=== PATIENT | female | born 1995 | race Hispanic/Latino ===

== ENCOUNTER 2018-11-28 13:02 | Inpatient (IN) ==
[2018-11-28] MEDS ORDERED: PEPCID PO PRN (13:21)
[2018-11-28] MEDS ORDERED: PEPCID PO ONE (13:21)
[2018-11-28] MEDS ORDERED: PEPCID IV PRN (13:21)
[2018-11-28] MEDS ORDERED: TYLENOL PO PRN (13:21)
[2018-11-28] MEDS ORDERED: STADOL IV PRN (13:21)
[2018-11-28] MEDS ORDERED: REGLAN PO ONE (13:21)
[2018-11-28] MEDS ORDERED: ZOFRAN IV PRN (13:21)
[2018-11-28] MEDS ORDERED: LR 500 ML IV ONE (13:21)
[2018-11-28] MEDS ORDERED: KEFZOL 1 GM/D5W 1 GM/50 ML IVPB IV PRN (13:21)
[2018-11-28] MEDS: PITOCIN ONE (13:22)
[2018-11-28] MEDS ORDERED: XYLOCAINE-MPF 1% INJ ONE (13:26)
[2018-11-28] MEDS ORDERED: LR 1,000 ML IV SCH (13:30)
[2018-11-28] MEDS ORDERED: PITOCIN 30 UNITS/NS 30 UNIT/500 ML IV.SOLN IV SCH ×2 (13:30→15:00)
[2018-11-28] MEDS ORDERED: SODIUM CHLORIDE 0.9% INJ SCH (13:30)
[2018-11-28 14:20] LABS: BASO# 0.04 X1000 (0.0-0.2); BASO% 0.5 % (0.0-0.8); EOS# 0.05 X1000 (0.0-0.7); EOS% 0.6 % (0.0-10.0); HEMATOCRIT 36.8 % (37.0-47.0); HEMOGLOBIN 12.3 g/dL (12.0-16.0); IMM GRAN# 0.02 X1000 (0.0-0.04); IMM GRAN% 0.2 % (0.0-0.5); LYMPH# 0.98 X1000 (1.2-3.4); LYMPH% 11.8 % (20.5-51.1); MCH 27.3 PG (27-31); MCHC 33.4 g/dL (33-37); MCV 81.8 FL (81-99); MONO# 0.56 X1000 (0.11-0.59); MONO% 6.8 % (1.7-9.3); MPV 12.8 FL (7.4-10.4); NEUT# 6.64 X1000 (1.4-6.5); NEUT% 80.1 % (42.2-75.2); PLT 239 X1000 (130-400); RDW 15.4 % (11.5-14.5); WBC 8.29 X1000 (4.8-10.8)
[2018-11-28] MEDS ORDERED: CYTOTEC PO PRN (14:57)
[2018-11-28] MEDS ORDERED: PERI MEDS (DERMOPLAST/NUPERCAINAL/TUCKS) MISC PRN (14:57)
[2018-11-28] MEDS ORDERED: HYDROXYZINE IM PRN (14:57)
[2018-11-28] MEDS ORDERED: BENADRYL IV PRN (14:57)
[2018-11-28] MEDS ORDERED: PITOCIN IM PRN (14:57)
[2018-11-28] MEDS ORDERED: BOOSTRIX VACCINE IM ONE (14:57)
[2018-11-28] MEDS ORDERED: ATARAX PO PRN (14:57)
[2018-11-28] MEDS ORDERED: BENADRYL PO PRN (14:57)
[2018-11-28] MEDS ORDERED: M-M-R II VACCINE SUBQ ONE (14:57)
[2018-11-28] MEDS ORDERED: PITOCIN 20 UNITS/NS 20 UNITS/1,000 ML IV.SOLN IV SCH (15:00)
--- NOTE | 2018-11-28 15:08 | HISTORY AND PHYSICAL ---
CHIEF COMPLAINT: Onset labor, no care. HISTORY OF PRESENT ILLNESS: The patient is a 23-year-old, G3, P2, [facility] female. Language Line used post to obtain patient's medical history due to arriving at advanced dilatation and rapid delivery. She presents at 39 weeks and 1 day gestation based on an EDC of 12/04/2018. The patient states that she got her due date from [facility] and [facility]. She had no ultrasound for this and no care or doctor's visits. The patient arrived to Labor and Delivery , walked up to the desk complaining of cramping. She did not present through the emergency room. She was placed on the monitor at 1:04 p.m., almost immediately post arrival. heart tones in the 150s when it was picking up. She was checked by a nurse at 1:07 p.m. after she had gone to the bathroom. She was found to be at 8, 100, and +2 station. I arrived in the room at 1:09 p.m. and by then patient was complete, +2, with bulging bag present. PAST MEDICAL HISTORY: None. PAST SURGICAL HISTORY: None. ALLERGIES: None. MEDICATIONS: vitamins. FAMILY HISTORY: Unremarkable per patient. SOCIAL HISTORY: Denies alcohol use. Denies illicit drug use. Denies tobacco use. OBSTETRIC HISTORY: In 2013 a spontaneous vaginal delivery, female infant. In 2016 spontaneous vaginal delivery, female infant. No complications or problems with either and both delivered at term. PHYSICAL EXAMINATION: GENERAL: Alert and oriented x3. Patient feeling contractions and vocal during contractions, but able to relax in between contractions. HEENT: Pupils equal, round, reactive to light. No thyromegaly present. CARDIOVASCULAR: Regular rate and rhythm. LUNGS: Clear to auscultation bilaterally. ABDOMEN: Bowel sounds present. Soft, nondistended, nontender. Gravid uterus, nontender. PELVIC EXAM: Complete. Bag of water intact, bulging. Plus 2 station. EXTREMITIES: No calf pain. No edema. LABS: Labs were obtained just post delivery. Hemoglobin of 12.3, hematocrit of 36.8, white count of 8.29, and platelet count of 239,000. Remainder of panel is all still pending. Urine drug screen and UA also pending. ASSESSMENT: This is a 23-year-old, G3, P2, [facility] female with no care presenting at 39 weeks and 1 day gestation in active labor at complete and +2 PLAN: 1. Imminent delivery. cc: Lindsay Mtz MD MTDD
--- NOTE | 2018-11-28 15:23 | OPERATIVE NOTE ---
PROCEDURE DATE: 11/28/2018 DELIVERY SUMMARY: The patient is a 23-year-old, G3, P2, [place] female with no care, who presents at 39 weeks and 1 day gestation dated with EDC of 12/04/2018 by [facility] and [facility]. She has had no ultrasound or care. She presented to the Labor and Delivery area , walked up to the desk complaining of cramping. She states that her contractions started at 11am. She was placed on the monitor at 1:04 p.m., pretty quickly after arrival. heart tones 150s when picking up. She was checked by the nurse at 1:07pm after patient went to restroom. Per nurse , she was found to be 8, 100, and +2 station. I was in the room at 1:09 p.m. She was complete and +2 with bulging bag. She did have a spontaneous rupture of membranes at 1:17 p.m. while waiting for nursery and nurses to set up a room for delivery. It was clear fluid and she underwent a spontaneous vaginal delivery at 1:18 p.m., female infant, [place] presentation. There was a cord around the neck x1 that was not able to be reduced as patient's pushing effort was great and delivery was fast. There was a short cord noted. One minute delay in cord clamping occurred. Her Apgars were 9 and 10 at 1 and 5 minutes respectively. Baby weighed 7 pounds 5 ounces. No IV access was in and the placenta was delivered at 1:22 p.m. spontaneously with gentle downward traction and uterine massage. She did get 20 units of Pitocin IM in the right thigh at the time of delivery of the placenta. IV was subsequently placed post delivery. The uterus was firm. I did an exploration and there were no retained products of conception. The uterus firmed up nicely with massage. EBL is estimated at approximately 150 mL. Survey of her perineum post delivery revealed a minimal laceration of the posterior introitus on the perineum. Pressure was applied; however, still had bleeding present. It was not deep in nature, but was having bleeding. This laceration was very minimal. Language Line was not present at this time as we were in the midst of delivery. did speak some [place] and translated. Discuss that it would take an injection x2 to numb her up or just placement of 1 figure- of-eight suture which would also just be 2 pokes. She would feel each. It was up to her if she wanted any pain medication to help with it. and patient stated to just do it. One [id number] suture of 3-0 chromic suture was placed for excellent approximation and excellent hemostasis. Patient did tolerate actually very well with no complaints of discomfort. Uterus was firm post delivery. Little to no bleeding. Both mother and baby were doing well. cc: Lindsay Mtz MD [facility]
[2018-11-28 15:32] LABS: RAPID HIV PRESUMPTIVE NEGATIVE
[2018-11-28 15:44] LABS: UR AMPHETAMINES QUAL NONE DETECTED (NONE DETECT); UR BARBITUATES QUAL NONE DETECTED (NONE DETECT); UR BENZODIAZEPIN QUAL NONE DETECTED (NONE DETECT); UR CANNABINOIDS QUAL NONE DETECTED (NONE DETECT); UR COCAINE QUAL NONE DETECTED (NONE DETECT); UR METHADONE QUAL NONE DETECTED (NONE DETECT); UR METHAMPHETAMINE QUAL NONE DETECTED (NONE DETECT); UR OPIATES QUAL NONE DETECTED (NONE DETECT); UR OXYCODONE QUAL NONE DETECTED (NONE DETECT); UR PCP QUAL NONE DETECTED (NONE DETECT); UR PROPOXYPHENE QUAL NONE DETECTED (NONE DETECT); UR TCA QUAL NONE DETECTED (NONE DETECT)
[2018-11-28] MEDS: MOTRIN PO PRN (18:13)
[2018-11-28] MEDS: PERICOLACE PO SCH (20:53)
[2018-11-28 22:33] LABS: RUBELLA SCREEN IMMUNE (IMMUNE)
[2018-11-29] MEDS: MOTRIN PO PRN ×2 (04:09→10:31)
[2018-11-29 06:45] LABS: BASO# 0.05 X1000 (0.0-0.2); BASO% 0.5 % (0.0-0.8); EOS# 0.29 X1000 (0.0-0.7); HEMATOCRIT 30.4 % (37.0-47.0); HEMOGLOBIN 9.7 g/dL (12.0-16.0); IMM GRAN# 0.07 X1000 (0.0-0.04); IMM GRAN% 0.7 % (0.0-0.5); LYMPH% 22.1 % (20.5-51.1); MCH 26.4 PG (27-31); MCHC 31.9 g/dL (33-37); MCV 82.6 FL (81-99); MONO# 1.23 X1000 (0.11-0.59); MONO% 12.9 % (1.7-9.3); MPV 12.8 FL (7.4-10.4); NEUT# 5.77 X1000 (1.4-6.5); NEUT% 60.8 % (42.2-75.2); PLT 217 X1000 (130-400); RBC 3.68 XMIL (4.2-5.4); RDW 15.4 % (11.5-14.5); WBC 9.51 X1000 (4.8-10.8)
--- NOTE | 2018-11-29 07:12 | OB/GYN PROGRESS NOTE ---
Progress Note OB - . OB Progress Note: Vital Signs - 24 hr 11/28/18 13:05 11/28/18 18:30 11/28/18 20:19 Temperature 97.5 F L 97.8 F 97.1 F L Pulse Rate 90 91 H 100 H Respiratory Rate 22 16 18 Blood Pressure 116/74 108/59 119/79 O2 Sat by Pulse Oximetry 100 97 99 11/29/18 00:02 11/29/18 04:04 Temperature 97.1 F L 97.0 F L Pulse Rate 75 74 Respiratory Rate 18 18 Blood Pressure 94/51 89/50 O2 Sat by Pulse Oximetry 96 97 Laboratory Results - last 24 hr 11/28/18 11/28/18 11/28/18 13:08 13:45 13:45 WBC 8.29 RBC 4.50 Hgb 12.3 Hct 36.8 L MCV 81.8 MCH 27.3 MCHC 33.4 RDW Std Deviation 15.4 H Plt Count 239 MPV 12.8 H Immature Gran % (Auto) 0.2 Neut % (Auto) 80.1 H Lymph % (Auto) 11.8 L [place] % (Auto) 6.8 Eos % (Auto) 0.6 Baso % (Auto) 0.5 Immature Gran # (Auto) 0.02 Neut # (Auto) 6.64 H Lymph # (Auto) 0.98 L [place] # (Auto) 0.56 Eos # (Auto) 0.05 Baso # (Auto) 0.04 Glucose Urine Opiates Screen NONE DETECTED Ur Oxycodone Screen NONE DETECTED Urine Methadone Screen NONE DETECTED U Propoxyphene Qual NONE DETECTED Ur Barbituates Screen NONE DETECTED Ur Tricyclics Screen NONE DETECTED Ur Phencyclidine Scrn NONE DETECTED Ur Amphetamines Screen NONE DETECTED U Methamphetamines Scrn NONE DETECTED U Benzodiazepines Scrn NONE DETECTED Urine Cocaine Screen NONE DETECTED U Cannabinoids Screen NONE DETECTED RPR NON-REACTIVE HIV 1&2 Antibody Rapid Rubella Immunity Screen Blood Type Antibody Screen 11/28/18 11/28/18 11/28/18 13:45 13:45 13:45 WBC RBC Hgb Hct MCV MCH MCHC RDW Std Deviation Plt Count MPV Immature Gran % (Auto) Neut % (Auto) Lymph % (Auto) [place] % (Auto) Eos % (Auto) Baso % (Auto) Immature Gran # (Auto) Neut # (Auto) Lymph # (Auto) [place] # (Auto) Eos # (Auto) Baso # (Auto) Glucose 84 Urine Opiates Screen Ur Oxycodone Screen Urine Methadone Screen U Propoxyphene Qual Ur Barbituates Screen Ur Tricyclics Screen Ur Phencyclidine Scrn Ur Amphetamines Screen U Methamphetamines Scrn U Benzodiazepines Scrn Urine Cocaine Screen U Cannabinoids Screen RPR HIV 1&2 Antibody Rapid PRESUMPTIVE NEGATIVE Rubella Immunity Screen IMMUNE Blood Type O POSITIVE Antibody Screen NEGATIVE 11/29/18 04:50 WBC 9.51 RBC 3.68 L Hgb 9.7 L D Hct 30.4 L MCV 82.6 MCH 26.4 L MCHC 31.9 L RDW Std Deviation 15.4 H Plt Count 217 MPV 12.8 H Immature Gran % (Auto) 0.7 H Neut % (Auto) 60.8 Lymph % (Auto) 22.1 [place] % (Auto) 12.9 H Eos % (Auto) 3.0 Baso % (Auto) 0.5 Immature Gran # (Auto) 0.07 H Neut # (Auto) 5.77 Lymph # (Auto) 2.10 [place] # (Auto) 1.23 H Eos # (Auto) 0.29 Baso # (Auto) 0.05 Glucose Urine Opiates Screen Ur Oxycodone Screen Urine Methadone Screen U Propoxyphene Qual Ur Barbituates Screen Ur Tricyclics Screen Ur Phencyclidine Scrn Ur Amphetamines Screen U Methamphetamines Scrn U Benzodiazepines Scrn Urine Cocaine Screen U Cannabinoids Screen RPR HIV 1&2 Antibody Rapid Rubella Immunity Screen Blood Type Antibody Screen S: doing well, no c/o. Lochia minimal. No c/o pain. No CP or SOB. No Nausea or vomiting. Tolerating po. Ambulating and voiding without difficulty. Bottle feeding. O: VSS afebrile -- pulse in 70's overnight. abd- soft, ND/NT and no R/G. Uterus firm just below umbilicus. perineum - well approximated and no swelling. ext - no calf pain and no edema. A: PPD #1 S/P - doing well. P: 1. continue PP care. 2. No PNC - manager social responsibility consult. Awaiting evaluation. 3. Hgb pre 12.3 and post 9.7 - FeSO4 325mg po q day 4. Anticipate discharge home tomorrow.
[2018-11-29] MEDS: FERROUS SULFATE PO SCH (10:31)
[2018-11-29] MEDS: PERICOLACE PO SCH (20:35)
[2018-11-29 20:55] LABS: HIV ANTIBODY SCREEN SEE COMMENTS
--- NOTE | 2018-11-30 06:52 | OB/GYN PROGRESS NOTE ---
Progress Note OB - . Patient Problems: Current Active Problems Problem Status Onset Intrauterine Acute OB Progress Note: Vital Signs - 24 hr 11/29/18 08:00 11/29/18 11:50 11/29/18 16:25 Temperature 97.4 F L 96 F L 97.6 F Pulse Rate 69 82 77 Respiratory Rate 16 16 16 Blood Pressure 115/58 119/56 106/58 O2 Sat by Pulse Oximetry 98 97 98 11/29/18 20:36 11/30/18 03:09 Temperature 97.2 F L 97.0 F L Pulse Rate 85 72 Respiratory Rate 18 18 Blood Pressure 101/60 119/75 O2 Sat by Pulse Oximetry Laboratory Results - last 24 hr 11/28/18 11/29/18 15:32 04:50 WBC 9.51 RBC 3.68 L Hgb 9.7 L D Hct 30.4 L MCV 82.6 MCH 26.4 L MCHC 31.9 L RDW Std Deviation 15.4 H Plt Count 217 MPV 12.8 H Immature Gran % (Auto) 0.7 H Neut % (Auto) 60.8 Lymph % (Auto) 22.1 [place] % (Auto) 12.9 H Eos % (Auto) 3.0 Baso % (Auto) 0.5 Immature Gran # (Auto) 0.07 H Neut # (Auto) 5.77 Lymph # (Auto) 2.10 [place] # (Auto) 1.23 H Eos # (Auto) 0.29 Baso # (Auto) 0.05 HIV 1&2 Antibody Screen SEE COMMENTS S: doing well, no c/o. Tolerating PO no N/V. Ambulating and voiding without difficulty. Lochia minimal. Bottle feeding. No CP or SOB. No leg pains O: VSS, afebrile - see above Abd- soft, ND/NT and no R/G, uterus firm below umbilicus. Ext - no calf pain or edema. A: PPD # 2 S/P . P: 1. Doing well, stable, ready for discharge to home. 2. Discharge instructions discussed and states understanding. To be reiterated again with nurses through language line. 3. Motrin 600mg po OTC use q 6 hours prn and tylenol 1000mg po OTC use q 6 hours prn discussed if needed. Continue PNV use daily. 4. Follow up for PP check in 6 weeks. Sooner if problems or concerns. Card and phone number for Dr. Mckeon given
[2018-11-30 08:09] VITALS: BP 115/59
[2018-11-30] MEDS ORDERED: FLU VACCINE IM ONE (08:11)
[2018-11-30] MEDS: FERROUS SULFATE PO SCH (08:15)
[2018-11-30 08:38] LABS: HEPATITIS B SURFACE ANTIGEN SEE COMMENTS
--- NOTE | 2018-12-01 08:32 | DISCHARGE SUMMARY ---
ADMISSION DATE: 11/28/2018 DISCHARGE DATE: 11/30/2018 PRINCIPAL DIAGNOSIS: Onset labor at term, arrived complete. ADDITIONAL DIAGNOSIS: No care. HOSPITAL COURSE: The patient is a 23-year-old, G3, now P3, [facility] female who had received no care. She showed up to Labor and Delivery at approximately 8 cm per nursing, but within minutes became complete and delivered. She underwent spontaneous vaginal delivery on 11/28/2018 of a female infant, Apgars of 9 and 10 at 1 and 5 minutes respectively. Her course has been unremarkable. Vital signs stable. Afebrile. Her pre-delivery hemoglobin was 12.3. Post delivery hemoglobin was 9.7. Patient is not tachycardic. No complaints of chest pain or shortness of breath. No headache. No difficulty in ambulating or voiding. Tolerating p.o. without difficulty. Her lochia was minimal and the uterus was firm below the umbilicus. The patient is bottle-feeding. She is discharged to home to follow up in 6 weeks time for check with Dr. Mckeon. Card and phone number were given. Importance of follow-up was discussed with patient. Discharge instructions were discussed including no heavy lifting, nothing heavier than baby or approximately 15 pounds for the next 4 to 6 weeks and gradually increasing from there. She is instructed not to drive for 2 weeks until pain free and no intercourse for 6 weeks. Language line to be used with nursing to reiterate just prior to home going as well. She is instructed in use of Motrin as well as Tylenol [id number] use per label directions fine. The patient has not been taking anything for discomfort while in the hospital. I instructed patient to continue her vitamin use daily. The patient instructed to call if any problems, questions, or concerns, and was discharged to home in stable condition. She did have social science teacher consult for which no further follow-up was recommended. cc: Lindsay Mtz MD [facility]
== END 2018-11-30 13:00 | disposition home or self-care (01) | DRG 807 ==
LOC: P.OPLD 13:02 → P.LD 13:05
PROVIDERS: ADMIT Obstetrics & Gynecology; ATTEND Obstetrics & Gynecology
CPT/HCPCS: 80104; 80301; 80305; 82947; 85025; 86592; 86701; 86703; 86762; 86850; 86900; 86901; 87340; 87389; 87390; 87491; 87591; 90686; 90715; A9270; G0431; G0434; G0477; J2590